=== PATIENT | male | born 1940 | race Two or more races ===

== ENCOUNTER 2024-09-27 18:58 | Emergency (ER) | payer OTHER ==
[~2024-09-27] VITALS: Ht 170.2 cm; Wt 80.0 kg
[2024-09-27 19:41] LABS: BASOPHILS % (AUTO) 0.6 % (0.0-2.0); EOSINOPHILS # (AUTO) 0.3 K/uL (0.0-0.7); EOSINOPHILS % (AUTO) 4.6 % (0.0-7.0); HEMATOCRIT 36.2 % (36.7-47.1); HEMOGLOBIN 11.9 g/dL (12.5-16.3); LYMPHOCYTES # (AUTO) 2.1 K/uL (0.8-4.8); LYMPHOCYTES % (AUTO) 29.6 % (20.5-51.5); MEAN CORPUSCULAR HEMOGLOBIN 30.6 uug (23.8-33.4); MEAN CORPUSCULAR HGB CONC 33 g/dL (32.5-36.3); MEAN CORPUSCULAR VOLUME 92.9 fL (73.0-96.2); MONOCYTES # (AUTO) 0.6 K/uL (0.1-1.30); MONOCYTES % (AUTO) 8.1 % (0.0-11.0); NEUTROPHILS # (AUTO) 4.1 K/uL (1.8-8.9); NEUTROPHILS % (AUTO) 57.1 % (38.5-71.5); PLATELET COUNT (AUTO) 178 K/uL (152-348); WHITE BLOOD COUNT (AUTO) 7.1 K/uL (3.6-10.2)
[2024-09-27 19:42] LABS: DIFFERENTIAL COMMENT 1
[2024-09-27] MEDS ORDERED: ONDANSETRON 4 MG/2 ML VIAL ONE (19:44)
[2024-09-27] MEDS: IV NORMAL SALINE 500 ML BAG IV ONE (19:45)
[2024-09-27 19:47] LABS: CALCIUM 8.8 mg/dL (8.5-10.1); CARBON DIOXIDE 24 mmol/L (21-32); CHLORIDE 104 mmol/L (98-107); CREATININE 1.4 mg/dL (0.6-1.3); GLUCOSE 98 mg/dL (74-106); POTASSIUM 4.6 mmol/L (3.5-5.1); SODIUM SERUM 141 mmol/L (136-145); UREA NITROGEN, BLOOD 29 mg/dL (7-18)
[2024-09-27] MEDS: ONDANSETRON 4 MG/2 ML VIAL IV ONE (19:55)
[2024-09-27 19:56] LABS: ALANINE AMINOTRANSFERASE 15 U/L (16-63); ALBUMIN 3.5 g/dL (3.4-5.0); ALKALINE PHOSPHATASE 76 U/L (50-136); ASPARTATE AMINOTRANSFERASE 15 U/L (15-37); BILIRUBIN,DIRECT 0.1 mg/dL (0.0-0.2); BILIRUBIN,TOTAL 0.3 mg/dL (0.2-1.0); TOTAL PROTEIN, SERUM 8.1 g/dL (6.4-8.2)
[2024-09-27] MEDS ORDERED: LOSA50TA39 PO (21:15)
[2024-09-27] MEDS ORDERED: MIRT-93 PO (21:15)
[2024-09-27] MEDS ORDERED: ATORVASTATIN (21:15)
[2024-09-27] MEDS ORDERED: LEVO75TA7 PO (21:15)
[2024-09-27] MEDS ORDERED: MONT10TA33 PO (21:15)
[2024-09-27] MEDS ORDERED: AMLO-212 PO (21:15)
[2024-09-27] MEDS ORDERED: TAMSULOSIN (21:15)
[2024-09-28 01:20] VITALS: O2SAT 95
== END 2024-09-28 01:40 | disposition short-term general hospital (02) ==
LOC: ER 18:58
DX: J39.8 Other specified diseases of upper respiratory tract (principal); E78.5 Hyperlipidemia, unspecified; Z79.890 Hormone replacement therapy; Z79.899 Other long term (current) drug therapy; Z86.73 Personal history of transient ischemic attack (TIA), and cerebral infarction without residual deficits
CPT/HCPCS: 99285; 96374; 71045; 96361; 80076; 80048; 85025; 84484 ×3; 36415; 93005; J2405; J7040; A4606; A4663